=== PATIENT | male | born 1985 | race Caucasian/White ===

== ENCOUNTER → 2025-01-01 09:09 | Outpatient (CLI) | payer OTHER, SELFPAY ==
[2025-01-01 10:16] LABS: Cholesterol 172 mg/dL (140-199); HDL Cholesterol 51 mg/dL (40-60); Triglycerides 59 mg/dL (35-150)
[2025-01-01 10:45] LABS: Hepatitis B Surface Antigen NEGATIVE s/c (NEGATIVE)
[2025-01-01 11:10] LABS: HIV 1 & 2 Ab/Ag 4th Gen Combo NEGATIVE (NEGATIVE); Hep C Virus Ab w/Reflex Quant NEGATIVE s/c (NEGATIVE)
[2025-01-01 11:54] LABS: Urine N gonorrhoeae NOT DETECTED
[2025-01-01 12:57] LABS: Urine Chlamydia NOT DETECTED
== END ==
PROVIDERS: PCP Student in an Organized Health Care Education/Training Program; Referring Provider Student in an Organized Health Care Education/Training Program; Visit Provider Student in an Organized Health Care Education/Training Program
DX: Z20.2 Contact with and (suspected) exposure to infections with a predominantly sexual mode of transmission (principal); Z13.220 Encounter for screening for lipoid disorders
CPT/HCPCS: 36415; 80061; 86592; 86803; 87340; 87389; 87491; 87591